=== PATIENT | female | born 1935 | race Caucasian/White ===

== ENCOUNTER → 2020-06-20 12:08 | Outpatient (CLI) | payer MEDICARE, SELFPAY ==
--- NOTE | ~2020-06-20 | MM_ITS ---
EXAMINATION: MM screening [facility] BI w sravanthi HISTORY: Screening mammogram TECHNIQUE: Craniocaudal and mediolateral oblique 3-D tomosynthesis images were obtained and synthetic 2-D images were generated. CAD analysis was submitted and interpreted. COMPARISON: 01/14/2019, 12/10/2017, 12/03/2016 BREAST PARENCHYMAL COMPOSITION: The breasts are almost entirely fatty. FINDINGS: There is no evidence of suspicious mass, calcification, or architectural distortion to sugg est malignancy in either breast. There has been no suspicious interval change. IMPRESSION: 1. No mammographic evidence of malignancy. 2. Recommend routine screening mammography while the patient remains in good health. BI-RADS Category 1: Negative Reviewed, dictated and finalized at location A. IMPRESSION: 1. No mammographic evidence of malignancy. 2. Recommend routine screening mammography while the patient remains in good he alth. BI-RADS Category 1: Negative
== END ==
PROVIDERS: PCP Emergency Medicine; Visit Provider Emergency Medicine
DX: Z12.31 Encounter for screening mammogram for malignant neoplasm of breast (principal)
CPT/HCPCS: 77063; 77067

== ENCOUNTER → 2021-02-28 13:12 | Outpatient (CLI) | payer MEDICARE, SELFPAY ==
--- NOTE | ~2021-02-28 | DEXA_ITS ---
Bone Density Report Name: Marychuy Castelan Age: 85 Sex: Female Ethnicity: White Date of : 1935 Indication: osteopenia; height loss; hysterectomy; postmenopausal Referring Provider: RUPERTO OSBORN Study: Bone densitometry was performed. Exam Date: February 28, 2021 Accession number: [id number] Bone Density: Region BMD T-score Z-score Classification AP Spine (L1-L4) 0.911 -1.2 1.6 Osteopenia Femoral Neck (Left) 0.668 -1.6 0.8 Osteopenia Total Hip (Left) 0.736 -1.7 0.6 Osteopenia Femoral Neck (Right) 0.687 -1.5 1.0 Osteopenia Total Hip (Right) 0.715 -1.9 0.4 Osteopenia Total Hip Mean 0.726 -1.8 0.5 Osteopenia World Health Organization criteria for BMD impression classify patients as: Normal (T-score at or above -1.0), Osteopenia (T-score between -1.0 and -2.5), or Osteoporosis (T-score at or below -2.5). 10-year Fracture Risk(1): Major Osteoporotic Fracture 13% Hip Fracture 3.6% Reported Risk Factors: [place] (), Neck BMD=0.668, BMI=31.8 (1) FRAX(R) Version 3.08. Fracture probability calculated for an untreated patient. Fracture probability may be lower if the patient has received treatment. Previous Exams: Region Exam Age BMD T-score BMD Change BMD Change Date g/cm2 vs Baseline vs Previous AP Spine(L1-L4) 02/28/2021 85 0.911 -1.2 0.014 0.014 10/09/2017 81 0.898 -1.4 Total Hip(Left) 02/28/2021 85 0.736 -1.7 -0.048* -0.048* 10/09/2017 81 0.784 -1.3 Total Hip(Right) 02/28/2021 85 0.715 -1.9 -0.112* -0.112* 10/09/2017 81 0.826 -0.9 *Denotes significance at 95% confidence level, LSC for AP Spine = 0.022 g/cm2, LSC for Total Hip = 0.027 g/cm2 Clinical Information Provided by Patient: Has used the following medications: Vitamin D Has the following medical conditions: Hysterectomy Patient maximum height was 67 Menopause Age: 35 Drinks caffeinated beverages Onset of menses at age 11 Number of children 1 Impression: The patient has low bone mass, based on the Right Total Hip T-score. The patient has an estimated ten-year risk of hip fracture of 3.6% and an estimated ten-year risk of major fracture of 13%, based on the WHO FRAX algorithm. The BMD for the Total Hip(Left) decreased, changing by -0.048 since the last DXA exam. The BMD for the Total Hip(Right) decreased, changing by -0.112 since the last DXA exam. Discussion: BONE DENSITY IS LOW AT ONE OR MORE SKE
== END ==
PROVIDERS: PCP Emergency Medicine; Visit Provider Emergency Medicine
DX: Z78.0 Asymptomatic menopausal state (principal); M85.88 Other specified disorders of bone density and structure, other site; M85.851 Other specified disorders of bone density and structure, right thigh; M85.852 Other specified disorders of bone density and structure, left thigh
CPT/HCPCS: 77080

== ENCOUNTER → 2021-06-22 10:14 | Outpatient (CLI) | payer MEDICARE, SELFPAY ==
--- NOTE | ~2021-06-22 | MM_ITS ---
EXAMINATION: MM screening [facility] BI w sravanthi HISTORY: Screening TECHNIQUE: Craniocaudal and mediolateral oblique 3-D tomosynthesis images were obtained and synthetic 2-D images were generated. CAD analysis was submitted and interpreted. COMPARISON: Comparison to multiple prior studies sequentially, with oldest reviewed study dated 11/30. BREAST PARENCHYMAL COMPOSITION: There are scattered areas of fibroglandular density. FINDINGS: There is no evidence of suspicious mass, calcification, or architectural distortion to sugg est malignancy in either breast. There has been no suspicious interval change. IMPRESSION: 1. No mammographic evidence of malignancy. 2. Recommend routine screening mammography in one year. BI-RADS Category 1: Negative Reviewed, dictated and finalized at location A.
== END ==
PROVIDERS: PCP Emergency Medicine; Visit Provider Emergency Medicine
DX: Z12.31 Encounter for screening mammogram for malignant neoplasm of breast (principal)
CPT/HCPCS: 77063; 77067

== ENCOUNTER 2024-05-04 02:58 | Day surgery (SDC) | payer MEDICARE, SELFPAY ==
[2024-05-04] VITALS (13 sets, daily range): BP systolic 122–185; BP diastolic 64–121; PULSE 76–111; RESP 17–31; TEMP 36.6; O2SAT 97–100; BMI 25.7
--- NOTE | 2024-05-04 07:00 | ECG_ITS ---
Test Date: 2024-05-04 07:22:57 Measurements Intervals [place] Rate: 97 P: 0 [place]: 0 QRS: 61 QRSD: 80 T: 88 QT: 343 QTc: 437 Interpretive Statements ATRIAL FIBRILLATION WITH ABERRANT CONDUCTION OR VENTRICULAR PREMATURE COMPLEXES NONSPECIFIC ST & T-WAVE ABNORMALITY ABNORMAL RHYTHM ECG No previous ECG available for comparison Electronically Signed On 05-04-2024 12:31:01 CDT by Ector Buchanan M.D.
[2024-05-04 07:42] LABS: Hematocrit 38.4 % (37.0-47.0); Hemoglobin 12.2 g/dL (12.0-15.0); Mean Corpuscular HGB Conc 31.8 g/dl (32-36); Mean Corpuscular Hemoglobin 28.7 pg (26-34); Mean Corpuscular Volume 90.4 fl (80-100); Mean Platelet Volume 10.1 fl (7.4-10.4); Platelet Count Result 263 k/mm3 (150-375); Red Blood Count 4.25 M/mm3 (4.2-5.4); Red Cell Distribution Width 16.4 % (11.5-14.5); White Blood Count 9.2 K/mm3 (4.5-10.0)
[2024-05-04 07:48] LABS: Anion Gap 12 mmol/L (4-12); Blood Urea Nitrogen 12 mg/dL (7-17); Calcium 9.4 mg/dL (8.4-10.2); Carbon Dioxide 23 mmol/L (22-30); Chloride 105 mmol/L (98-107); Estimated Glomerular Filt Rate 43; Glucose 118 mg/dL (65-110); Potassium 3.6 mmol/L (3.4-5.0); Sodium 140 mmol/L (137-145)
--- NOTE | 2024-05-04 08:30 | ECG_ITS ---
Test Date: 2024-05-04 09:29:42 Measurements Intervals [place] Rate: 76 P: 78 [place]: 240 QRS: 0 QRSD: 85 T: -32 QT: 396 QTc: 446 Interpretive Statements SINUS RHYTHM WITH FIRST DEGREE AV BLOCK NONSPECIFIC ST & T-WAVE ABNORMALITY Compared to ECG 05/04/2024 07:22:57 SINUS RHYTHM REPLACES ATRIAL FIBRILLATION Electronically Signed On 05-04-2024 12:34:06 CDT by Ector Buchanan M.D.
[2024-05-04] MEDS: SODIUM CHLORIDE 0.9% IV 1,000 ML 30 ML IV CONT (09:20)
--- NOTE | 2024-05-04 09:27 | HP_ITS ---
This report was moved to the correct visit, [id number] on 05/05/2024. Original report was Dictated by Ector Buchanan MD 05/04/24 0928 Moderate Sedation Note-Pt Data Patient Data Diagnosis: Atrial fib, recurrent symptomatic Present Complaint: This is a 88-year-old lady with a history of paroxysmal AFib admitted with symptomatic recurrence of her arrhythmia with shortness of breath and fatigue. Symptoms have been approximately 2-3 weeks. An attempt at restoring sinus rhythm electrically has been recommended. She is anticoagulated with Xarelto. Procedure to be performed/Plan: DC cardioversion Allergies Allergy/AdvReac Type Severity Reaction Status Date / Time No Known Allergies Allergy Verified 05/04/24 07:27 Home Medications Medication Instructions Recorded Confirmed Type cholecalciferol (vitamin D3) 50 50 mcg PO DAILY 09/17/19 05/04/24 History mcg (2,000 unit) capsule rivaroxaban 10 mg tablet (Xarelto) 20 mg PO DAILY 09/17/19 05/04/24 History sotalol 80 mg tablet 40 mg PO BID 09/17/19 05/04/24 History rosuvastatin 40 mg tablet See Rx Instructions .Route 05/13/23 05/04/24 Rx .COMPLEX #90 tabs furosemide 20 mg tablet (Lasix) 20 mg PO BID #180 tabs 12/09/23 05/04/24 Rx alendronate 70 mg tablet 35 mg PO BID 05/04/24 05/04/24 History amlodipine 10 mg tablet 10 mg PO DAILY 05/04/24 05/04/24 History olmesartan 40 mg tablet 40 mg PO DAILY 05/04/24 05/04/24 History Sedation/Anesthesia: No previous sedation/anesthesia problems (including family history). [facility] Past Medical History Medical History Afib Chronic a-fib CVA (cerebral vascular accident) Depression screening negative HTN (hypertension) HTN (hypertension), benign Hyperglycemia Mixed hyperlipidemia Patient had no falls in past year Right hip pain Vitamin D deficiency Family History Family History Father Acute myocardial infarction, Onset Age: 67 Mother Family history of Alzheimer's disease, Onset Age: 83 Social History Social History (Updated 12/09/23 @ 10:31 by Gayatri Smith MA) Smoking status: Never smoker Alcohol intake: never Do You Feel Safe in your Home?: Yes Lack of Transportation: No Lack of Food: Never True Current Housing: I Have Housing Concerned About Future Housing: No Difficulty Paying Gas/Electric Bills: No Difficulty Paying for Meds: No Currently Unemployed: No Education: High School Diploma/GED Difficulty w/ Childcare or Family Care: No Mod Sed Physical Exam Physical Exam Pre Procedural Exam: Normal: Appearance, Neck, Throat, Airway, Lungs, Heart Size, Neuro Exam and Extremities and Variation: Heart Rate and Heart Rhythm (Atrial fib heart rate 110) Hours since solid foods: 12 Hours since liquid intake: 12 Mallampati Classification: class II ASA Classification/Sedation ASA Classification/Sedation ASA Class: III Emergent: No Risks: Risks, benefits and alternatives explained and patient/family accepted plan for sedation. Patient re-evaluated immediately prior to sedation. This report may have been done utilizing a voice recognition system. Attempts have been made to correct errors. However, there may be uncorrected grammatical, spelling, and recognition errors present. Report Initialized date/time: Ector Buchanan MD 05/04/24927 Electronically signed by: Ector Buchanan MD 05/04/24927 [facility]
--- NOTE | 2024-05-04 09:28 | OP_ITS ---
This report was moved to the correct visit, [id number] on 05/05/2024. Original report was Dictated by Ector Buchanan MD 05/04/24 0928 Cardiac Cath Procedure Note Date of procedure:: 05/04/24 Performing physician:: Ector Buchanan MD Indication:: Recurrent atrial fibrillation Brief clinical history:: This is an 88-year-old lady with a history of atrial fibrillation being maintained on sotalol for sinus rhythm and anticoagulated with Xarelto. She has a recurrence of her arrhythmia for approximately 2-3 weeks resulting in symptoms of fatigue and dyspnea. Procedure Procedure performed:: DC cardioversion Sedation/Medication given:: And IV propofol 40 mg Estimated blood loss:: No blood loss Procedure note:: Patient was brought to the cardiac dental laboratory technician apprentice holding area with IV access in the left upper extremity. Defibrillator patches were placed in the AP position. A defibrillator was turned on at 200 joules output synchronized. She was then sedated with propofol 1 a bolus of 40 mg provided excellent sedation. She was DC cardioverted x1 shock at 200 joules restoring sinus rhythm with PACs. Findings:: As above Conclusion:: Successful uncomplicated DC cardioversion using 200 joules x1 shock restoring normal sinus rhythm Ector Buchanan MD [facility] This report may have been done utilizing a voice recognition system. Attempts have been made to correct errors. However, there may be uncorrected grammatical, spelling, and recognition errors present. Report Initialized date/time: Ector Buchanan MD 05/04/24929 Electronically signed by: Ector Buchanan MD 05/04/24 0930 [facility]
[2024-05-04] MEDS: SOTALOL HCL 80 MG TABLET PO (09:59)
== END 2024-05-04 11:15 | disposition home or self-care (01) ==
PROVIDERS: PCP Emergency Medicine; Visit Provider Specialist
PROC: 5A2204Z Restoration of Cardiac Rhythm, Single (ICD-10-PCS; principal; 2024-05-04 08:30)
DX: I48.0 Paroxysmal atrial fibrillation (principal); I10 Essential (primary) hypertension; E78.2 Mixed hyperlipidemia; R73.9 Hyperglycemia, unspecified; E55.9 Vitamin D deficiency, unspecified; Z79.83 Long term (current) use of bisphosphonates; Z79.01 Long term (current) use of anticoagulants; Z86.79 Personal history of other diseases of the circulatory system; Z82.49 Family history of ischemic heart disease and other diseases of the circulatory system
CPT/HCPCS: 36415; 80048; 83735; 85027; 92960; A9270; J2704; J7030

== ENCOUNTER 2024-05-07 10:33 | Outpatient (CLI) | payer MEDICARE, SELFPAY ==
--- NOTE | 2024-05-04 09:27 | WPDMODSED ---
Moderate Sedation Note-Pt Data Patient Data Diagnosis: Atrial fib, recurrent symptomatic Present Complaint: This is a 88-year-old lady with a history of paroxysmal AFib admitted with symptomatic recurrence of her arrhythmia with shortness of breath and fatigue. Symptoms have been approximately 2-3 weeks. An attempt at restoring sinus rhythm electrically has been recommended. She is anticoagulated with Xarelto. Procedure to be performed/Plan: DC cardioversion Allergies Allergy/AdvReac Type Severity Reaction Status Date / Time No Known Allergies Allergy Verified 05/04/24 07:27 Home Medications Medication Instructions Recorded Confirmed Type cholecalciferol (vitamin D3) 50 50 mcg PO DAILY 09/17/19 05/04/24 History mcg (2,000 unit) capsule rivaroxaban 10 mg tablet (Xarelto) 20 mg PO DAILY 09/17/19 05/04/24 History sotalol 80 mg tablet 40 mg PO BID 09/17/19 05/04/24 History rosuvastatin 40 mg tablet See Rx Instructions .Route 05/13/23 05/04/24 Rx .COMPLEX #90 tabs furosemide 20 mg tablet (Lasix) 20 mg PO BID #180 tabs 12/09/23 05/04/24 Rx alendronate 70 mg tablet 35 mg PO BID 05/04/24 05/04/24 History amlodipine 10 mg tablet 10 mg PO DAILY 05/04/24 05/04/24 History olmesartan 40 mg tablet 40 mg PO DAILY 05/04/24 05/04/24 History Sedation/Anesthesia: No previous sedation/anesthesia problems (including family history). [facility] Past Medical History Medical History Afib Chronic a-fib CVA (cerebral vascular accident) Depression screening negative HTN (hypertension) HTN (hypertension), benign Hyperglycemia Mixed hyperlipidemia Patient had no falls in past year Right hip pain Vitamin D deficiency Family History Family History Father Acute myocardial infarction, Onset Age: 67 Mother Family history of Alzheimer's disease, Onset Age: 83 Social History Social History (Updated 12/09/23 @ 10:31 by Gayatri Smith MA) Smoking status: Never smoker Alcohol intake: never Do You Feel Safe in your Home?: Yes Lack of Transportation: No Lack of Food: Never True Current Housing: I Have Housing Concerned About Future Housing: No Difficulty Paying Gas/Electric Bills: No Difficulty Paying for Meds: No Currently Unemployed: No Education: High School Diploma/GED Difficulty w/ Childcare or Family Care: No Mod Sed Physical Exam Physical Exam Pre Procedural Exam: Normal: Appearance, Neck, Throat, Airway, Lungs, Heart Size, Neuro Exam and Extremities and Variation: Heart Rate and Heart Rhythm (Atrial fib heart rate 110) Hours since solid foods: 12 Hours since liquid intake: 12 Mallampati Classification: class II ASA Classification/Sedation ASA Classification/Sedation ASA Class: III Emergent: No Risks: Risks, benefits and alternatives explained and patient/family accepted plan for sedation. Patient re-evaluated immediately prior to sedation.
--- NOTE | 2024-05-04 09:28 | WPDCARDPROC ---
Cardiac Cath Procedure Note Date of procedure:: 05/04/24 Performing physician:: Ector Buchanan MD Indication:: Recurrent atrial fibrillation Brief clinical history:: This is an 88-year-old lady with a history of atrial fibrillation being maintained on sotalol for sinus rhythm and anticoagulated with Xarelto. She has a recurrence of her arrhythmia for approximately 2-3 weeks resulting in symptoms of fatigue and dyspnea. Procedure Procedure performed:: DC cardioversion Sedation/Medication given:: And IV propofol 40 mg Estimated blood loss:: No blood loss Procedure note:: Patient was brought to the cardiac photographic laboratory supervisor holding area with IV access in the left upper extremity. Defibrillator patches were placed in the AP position. A defibrillator was turned on at 200 joules output synchronized. She was then sedated with propofol 1 a bolus of 40 mg provided excellent sedation. She was DC cardioverted x1 shock at 200 joules restoring sinus rhythm with PACs. Findings:: As above Conclusion:: Successful uncomplicated DC cardioversion using 200 joules x1 shock restoring normal sinus rhythm Ector Buchanan MD [facility]
--- NOTE | ~2024-05-07 | DEXA_ITS ---
Bone Density Report Name: PHILIPPE MORALES Age: 88 Sex: Female Ethnicity: White Date of : 1935 Indication: postmenopausal; screening for osteoporosis; height loss; hysterectomy; Referring Provider: RUPERTO OSBORN Study: Bone densitometry was performed. Exam Date: May 07, 2024 Accession number: [id number] Bone Density: Region BMD T-score Z-score Classification AP Spine(L1-L4) 0.892 -1.4 1.5 Osteopenia Femoral Neck (Left) 0.636 -1.9 0.6 Osteopenia Total Hip (Left) 0.732 -1.7 0.6 Osteopenia Femoral Neck (Right) 0.713 -1.2 1.3 Osteopenia Total Hip (Right) 0.739 -1.7 0.7 Osteopenia Total Hip Mean 0.736 -1.7 0.7 Osteopenia World Health Organization criteria for BMD impression classify patients as: Normal (T-score at or above -1.0), Osteopenia (T-score between -1.0 and -2.5), or Osteoporosis (T-score at or below -2.5). 10-year Fracture Risk(1): Major Osteoporotic Fracture 14% Hip Fracture 4.4% Reported Risk Factors: [place] (), Neck BMD=0.636, BMI=26.1 (1) FRAX(R) Version 3.08. Fracture probability calculated for an untreated patient. Fracture probability may be lower if the patient has received treatment. Clinical Information Provided by Patient: Has used the following medications: Vitamin D Has the following medical conditions: Hysterectomy Patient maximum height was 67 No regular weight bearing exercise Drinks caffeinated beverages Onset of menses at age 11 Number of children 1 Impression: The patient has low bone mass, based on the Left Femoral Neck T-score. The patient has an estimated ten-year risk of hip fracture of 4.4% and an estimated ten-year risk of major fracture of 14%, based on the WHO FRAX algorithm. Discussion: BONE DENSITY IS LOW AT ONE OR MORE SKELETAL SITES. THE PATIENT'S BMD AND CLINICAL RISK FACTORS CONTRIBUTE TO THIS PATIENT'S INCREASED RISK OF FRACTURE. This patient's lowest T-score is low at one or more skeletal sites. It meets the World Health Organization's (WHO) criteria for ?low bone mass? (T-score between -1.0 and -2.5). The patient's 10-year risk of hip fracture as calculated by FRAX exceeds the threshold where pharmacological therapy is recommended by the National Osteoporosis Foundation (NOF). However, all treatment decisions require clinical judgment and consideration of individual patient factors, including patient preferences, comorbidities, previous drug use, risk factors not captured in the FRAX model (e.g., frailty, falls, vitamin D deficiency, increased bone turnover, interval significant decline in bone density) and possible under or overestimation of fracture risk by FRAX. The patient should follow a healthful lifestyle (good nutrition with adequate calcium and vitamin D, and appropriate weight-bearing exercise). Fol
== END 2024-05-07 10:34 | disposition home or self-care (01) ==
LOC: ANHIMG 10:34
PROVIDERS: PCP Emergency Medicine; Visit Provider Emergency Medicine
DX: Z78.0 Asymptomatic menopausal state (principal); E55.9 Vitamin D deficiency, unspecified; M85.88 Other specified disorders of bone density and structure, other site; M85.852 Other specified disorders of bone density and structure, left thigh; M85.851 Other specified disorders of bone density and structure, right thigh
CPT/HCPCS: 77080

== ENCOUNTER 2024-05-27 07:57 | Outpatient (CLI) | payer MEDICARE, SELFPAY ==
--- NOTE | ~2024-05-27 | MM_ITS ---
EXAMINATION: MM screening [facility] BI w sravanthi HISTORY: Screening TECHNIQUE: Craniocaudal and mediolateral oblique 3-D tomosynthesis images were obtained and synthetic 2-D images were generated. CAD analysis was submitted and interpreted. COMPARISON: Comparison to multiple prior studies sequentially, with oldest reviewed study dated 11/30. BREAST PARENCHYMAL COMPOSITION: Not dense: There are scattered areas of fibroglandular density. FINDINGS: There is no evidence of suspicious mass, calcification, or architectural distortion to sugg est malignancy in either breast. There has been no suspicious interval change. IMPRESSION: 1. No mammographic evidence of malignancy. 2. Recommend routine screening mammography in one year. BI-RADS Category 1: Negative Reviewed, dictated and finalized at location B.
== END 2024-05-27 07:58 | disposition home or self-care (01) ==
LOC: ANHIMG 08:00
PROVIDERS: PCP Emergency Medicine; Visit Provider Emergency Medicine
DX: Z12.31 Encounter for screening mammogram for malignant neoplasm of breast (principal)
CPT/HCPCS: 77063; 77067